=== PATIENT | female | born 1985 | race African-American/Black ===

== ENCOUNTER 2024-11-08 09:59 | Emergency (ER) | payer MEDICAID ==
[~2024-11-08] VITALS: Ht 162.6 cm; Wt 60.0 kg
[2024-11-08 10:01] VITALS: O2SAT 97
[2024-11-08] MEDS: LEVETIRACETAM 500MG PREMIX 100 ML IV ONE ×2 (10:30→13:08)
[2024-11-08 12:09] LABS: HEMATOCRIT. 21.3 % (36.0-48.0); MEAN CORPUSCULAR HEMOGLOBIN 16.2 pg (28.0-32.0); MEAN CORPUSCULAR HGB CONC 28.6 g/dL (31.0-37.0); MEAN CORPUSCULAR VOLUME 56.7 fL (81.0-99.0); MEAN PLATELET VOLUME 8.5 fl (7.4-10.4); PLATELET 378 x1000/uL (130-400); RED BLOOD CELL COUNT 3.76 mill/uL (4.2-5.4); RED CELL DISTRIBUTION WIDTH 24.8 % (11.6-14.6); WHITE BLOOD COUNT 4.3 x1000/uL (4.5-11.0)
[2024-11-08 12:10] LABS: DIFFERENTIAL COMMENT 1; HEMOGLOBIN. 6.1 g/dL (12.0-16.0)
[2024-11-08 12:17] LABS: CHLORIDE 109 mEq/L (98-107); POTASSIUM 4.2 mEq/L (3.5-5.1); SODIUM 141 mEq/L (136-145)
[2024-11-08 12:18] LABS: CARBON DIOXIDE 26 mEq/L (21-32)
[2024-11-08 12:19] LABS: CALCIUM 9.3 mg/dL (8.7-10.4)
[2024-11-08 12:23] LABS: CREATININE 0.6 mg/dL (0.6-1.0); GLUCOSE 89 mg/dL (70-105); UREA NITROGEN BLOOD 7 mg/dL (9-23)
[2024-11-08 12:25] LABS: CREATINE KINASE 60 IU/L (34-145)
[2024-11-08 12:50] LABS: ANISOCYTOSIS 2+; GIANT PLATELETS NN; HYPOCHROMASIA 2+; MICROCYTOSIS 3+; PLATELET ESTIMATE NORMAL
[2024-11-08 13:22] LABS: TROPONIN I HIGH SENSITIVITY < 4 ng/L (3.0-34)
[2024-11-08 14:45] VITALS: BP 126/66; PULSE 76; RESP 12; TEMP 36.50292; O2SAT 98
== END 2024-11-08 15:41 | disposition short-term general hospital (02) ==
LOC: ER 10:11
DX: R56.9 Unspecified convulsions (principal); F03.90 Unspecified dementia, unspecified severity, without behavioral disturbance, psychotic disturbance, mood disturbance, and anxiety; Z88.2 Allergy status to sulfonamides
CPT/HCPCS: 80048; 82550; 83605; 85025; 86850; 86900; 86901; 86920; 84484; 36415; 71045; 70450; 93005; 96365; 99291; J1953; Z7610 ×4

== ENCOUNTER 2024-11-25 07:48 | Emergency (ER) | payer MEDICAID ==
[~2024-11-25] VITALS: Ht 170.2 cm; Wt 70.0 kg
[2024-11-25 07:53] VITALS: TEMP 98.4; O2SAT 100
[2024-11-25] MEDS: LACTATED RINGERS 1,000 ML IV SCH (08:22)
[2024-11-25] MEDS: LEVETIRACETAM 500MG PREMIX 100 ML IV ONE ×2 (08:23)
[2024-11-25 08:40] LABS: CHLORIDE 106 mEq/L (98-107); POTASSIUM 4.2 mEq/L (3.5-5.1); SODIUM 140 mEq/L (136-145)
[2024-11-25 08:41] LABS: CALCIUM 9.8 mg/dL (8.7-10.4); CARBON DIOXIDE 25 mEq/L (21-32)
[2024-11-25 08:45] LABS: HCG SCREEN NEGATIVE
[2024-11-25 08:46] LABS: CREATININE 0.7 mg/dL (0.6-1.0); GLUCOSE 89 mg/dL (70-105); UREA NITROGEN BLOOD 9 mg/dL (9-23)
[2024-11-25 08:48] LABS: ALANINE AMINOTRANSFERASE < 7 IU/L (10-49); ASPARTATE AMINOTRANSFERASE 23 IU/L (<34); BILIRUBIN TOTAL 0.4 mg/dL (0.1-1.0)
[2024-11-25 08:49] LABS: PROTEIN TOTAL 7.1 g/dL (6.0-8.3)
[2024-11-25 08:52] LABS: BASOPHILS % 1.3 % (0.0-2.0); EOSINOPHILS % 1.6 % (0.0-5.0); HEMATOCRIT. 32.6 % (36.0-48.0); HEMOGLOBIN. 10.2 g/dL (12.0-16.0); LYMPHOCYTES % 34.5 % (20.0-50.0); MEAN CORPUSCULAR HEMOGLOBIN 21.1 pg (28.0-32.0); MEAN CORPUSCULAR HGB CONC 31.3 g/dL (31.0-37.0); MEAN CORPUSCULAR VOLUME 67.3 fL (81.0-99.0); MEAN PLATELET VOLUME 9.1 fl (7.4-10.4); MONOCYTES % 2.4 % (2.0-8.0); NEUTROPHILS % 60.2 % (40.0-76.0); PLATELET 753 x1000/uL (130-400); RED BLOOD CELL COUNT 4.85 mill/uL (4.2-5.4); RED CELL DISTRIBUTION WIDTH 36.5 % (11.6-14.6); WHITE BLOOD COUNT 8.6 x1000/uL (4.5-11.0)
[2024-11-25 08:57] LABS: DIFFERENTIAL COMMENT 1
[2024-11-25 08:58] LABS: ADD RBC MORPHOLOGY YES
[2024-11-25 10:58] VITALS: BP 138/92; PULSE 67; RESP 16; O2SAT 100
[2024-11-25 11:17] LABS: HYPOCHROMASIA 2+
[2024-11-25 11:18] LABS: ANISOCYTOSIS 3+; MICROCYTOSIS 3+
[2024-11-25 11:19] LABS: PLATELET ESTIMATE INCREASED
== END 2024-11-25 11:00 | disposition home or self-care (01) ==
LOC: ER 07:48 → CANBEDREQ 10:22 → ER 11:00
DX: R56.9 Unspecified convulsions (principal); F03.90 Unspecified dementia, unspecified severity, without behavioral disturbance, psychotic disturbance, mood disturbance, and anxiety; Z88.2 Allergy status to sulfonamides
CPT/HCPCS: 80053; 84703; 85025; 36415; 70450; 93005; 96365; 96366; 99285; J1953; Z7610 ×2; A4606

== ENCOUNTER 2025-11-17 09:12 | Emergency (ER) | payer MEDICAID ==
[~2025-11-17] VITALS: Ht 167.6 cm; Wt 65.0 kg
[2025-11-17 09:14] VITALS: O2SAT 99
[2025-11-17] MEDS ORDERED: LEVETIRACETAM 1000MG PREMIX 100 ML IV ONE (09:30)
[2025-11-17] MEDS: LEVETIRACETAM 500MG PREMIX 100 ML IV ONE (09:57)
[2025-11-17 10:13] LABS: BASOPHILS % 1.1 % (0.0-2.0); EOSINOPHILS % 0.9 % (0.0-5.0); HEMATOCRIT. 30.0 % (36.0-48.0); HEMOGLOBIN. 9.4 g/dL (12.0-16.0); LYMPHOCYTES % 26.2 % (20.0-50.0); MEAN PLATELET VOLUME 7.8 fl (7.4-10.4); MONOCYTES % 4.6 % (2.0-8.0); NEUTROPHILS % 67.2 % (40.0-76.0); PLATELET 615 x1000/uL (130-400); RED BLOOD CELL COUNT 4.37 mill/uL (4.2-5.4); RED CELL DISTRIBUTION WIDTH 23.9 % (11.6-14.6)
[2025-11-17 10:20] LABS: ADD RBC MORPHOLOGY YES
[2025-11-17 10:27] LABS: CREATININE 0.7 mg/dL (0.6-1.0); UREA NITROGEN BLOOD 9 mg/dL (9-23)
[2025-11-17 10:28] LABS: ETHANOL BLOOD < 10 mg/dL (<10); PROTEIN TOTAL 7.6 g/dL (6.0-8.3)
[2025-11-17 10:29] LABS: ASPARTATE AMINOTRANSFERASE 27 IU/L (<34); BILIRUBIN DIRECT < 0.1 mg/dL (<=3.0)
[2025-11-17 10:30] LABS: BILIRUBIN TOTAL 0.4 mg/dL (0.1-1.0)
[2025-11-17] MEDS: LEVETIRACETAM 1000MG PREMIX 100 ML IV SCH (10:39)
[2025-11-17 10:43] LABS: PLATELET ESTIMATE INCREASED
[2025-11-17 11:54] VITALS: BP 126/82; PULSE 76; RESP 14; TEMP 37.1; O2SAT 99
== END 2025-11-17 12:12 | disposition home or self-care (01) ==
LOC: ER 09:42 → CANBEDREQ 11:41 → ER 12:12
DX: R56.9 Unspecified convulsions (principal); D50.9 Iron deficiency anemia, unspecified; F03.90 Unspecified dementia, unspecified severity, without behavioral disturbance, psychotic disturbance, mood disturbance, and anxiety; Z88.2 Allergy status to sulfonamides; Z79.899 Other long term (current) drug therapy
CPT/HCPCS: 80076; 80048; 80320; 83735; 85025; 36415; 93005; 96365; 96375; 99291; 82542; J1953; Z7610; G0480